=== PATIENT | female | born 1995 | race Caucasian/White ===

== ENCOUNTER → 2022-08-07 12:10 | Outpatient (BNVA) | payer SELFPAY | PROVIDERS: Family Provider Electrodiagnostic Medicine; PCP Family Medicine; Visit Provider Family Medicine | DX: L81.9 Disorder of pigmentation, unspecified (principal) | CPT/HCPCS: 88304 ==

== ENCOUNTER → 2025-01-15 10:25 | Outpatient (BNVA) | payer OTHER, SELFPAY | PROVIDERS: Family Provider Family Medicine; PCP Family Medicine; Visit Provider Family Medicine | DX: Z13.6 Encounter for screening for cardiovascular disorders (principal) | CPT/HCPCS: 80053; 84443; 85025 ==